=== PATIENT | female | born 1995 | race Caucasian/White ===

== ENCOUNTER 2020-01-31 07:49 | Day surgery (SDC) | payer OTHER ==
[~2020-01-31] VITALS: Ht 162.6 cm; Wt 95.3 kg
[~2020-01-31 07:49] MED LIST: CYMBALTA20 MG PO; HYDROCODON-ACE1 EA10 PO; HYDROXYZINE HCL10 MG PO; TORADOL10 MG PO
[2020-01-31 08:25] LABS: HEMATOCRIT 41.9 % (36.0-48.0); HEMOGLOBIN 13.9 g/dL (12-16); MCH 28.6 pg (26.0-34.0); MCHC 33.2 g/dL (31.0-37.0); MCV 86.2 fL (80.0-100.0); MEAN PLATELET VOLUME 9.1 fL (7.4-10.4); RBC 4.86 10x6/uL (4.00-5.40); RDW 12.2 % (11.5-14.5); WBC 4.4 10x3/uL (4.8-10.8)
[2020-01-31 08:46] LABS: HCG SERUM NEGATIVE (NEGATIVE)
[2020-01-31 08:57] VITALS: BP 112/75; Ht 162.6 cm; Wt 95.3 kg
--- NOTE | 2020-01-31 19:02 | NUR ---
1520 IV D/C'D WITH CANNULAINTACT, PRESSURE APPLIED AND DRSG APPLIED. DISCHARGE INSTRUCTIONS GIVEN AND PT AND MOTHER VERBALIZED AN UNDERSTANDING. OPERATIVE/BLOCKED LEG IS UNCHANGED. DISCHARGED IN STABLE CONDITION AND W/O C/O
--- NOTE | 2020-02-07 07:08 | OP ---
PATIENT NAME: MARIUM ROGERS MEDICAL RECORD: [id number] :96 LOCATION:D.OPS ADMISSION DATE: SURGEON: MAURICIO BELLAMY MD DATE OF OPERATION: 01/31/2020 PREOPERATIVE DIAGNOSIS: Fractured left metatarsal with displacement -- fifth metatarsal. POSTOPERATIVE DIAGNOSIS: Fractured left metatarsal with displacement -- fifth metatarsal. PROCEDURE: Open reduction internal fixation of left fifth metatarsal fracture. SURGEON: Mauricio Bellamy MD MOBILE GAME ENGINEER: LIAT Colmenares INTRAOPERATIVE COMPLICATIONS: None. SUMMARY OF PATHOLOGIC FINDINGS: The patient did indeed have a very displaced fracture of the fifth left metatarsal that required internal reduction and fixation using the Yris mini fragment set. OPERATIVE SUMMARY IN DETAIL: After obtaining the appropriate preoperative orthopedic surgery consent as well as anesthetic consultation, evaluation and placed in a supine position. After general laryngeal mask was administered, tourniquet was placed on the proximal aspect of the left lower extremity. Left lower extremity was then prepped and draped in routine sterile fashion. The leg was elevated and exsanguinated, tourniquet inflated to 350 mmHg. At this point, the appropriate timeout was taken and agreed upon by all given the patient's unique identifiers. Fluoroscopy based incision was then made over the fifth metatarsal. This was taken down to the level of the fracture fragment, which essentially extended to the metatarsal head to almost the metatarsal base. After mobilization of all fragments including the interposed fracture hematoma, the fracture fragments were aligned and provisionally pinned with a 0.045 K wires. The mini frag plate that was chosen was aligned and held in place with a small lobster clamp while serial and sequential drill and fill technique was done with a combination of both locking and nonlocking screws resulted anatomic fixation as seen on all 3 planes of radiographs. X-rays were taken and submitted for final radiologist review. The wound was copiously irrigated and closed with 2-0 Vicryl followed by 4-0 Prolene in interrupted fashion. Sterile dressings were applied. Tourniquet was deflated. The posterior L and U splint was applied. The patient was awakened and taken to the recovery room in stable condition. All final needle and sponge counts were correct. TRANSINT:[id number] Voice Confirmation ID: [id number] DOCUMENT ID: [id number] OPERATIVE REPORT [id number] MARIUM ROGERS MDMAURICIO at 0708 CC: [id number] DICTATION DATE: 02/06/20 1644 USABILITY ARCHITECT: 02/07/20 0141 [facility] [place] 01/31/20 [id number] [place] [address]
== END 2020-01-31 15:55 | disposition home or self-care (01) ==
LOC: D.OPS 07:49 → D.PAN 10:00 → D.OPS 10:00 → D.PAN 10:45 → D.OPS 15:55
PROVIDERS: Anesthesiology; ATTEND Orthopaedic Surgery
DX: S92.352A Displaced fracture of fifth metatarsal bone, left foot, initial encounter for closed fracture (principal); X58.XXXA Exposure to other specified factors, initial encounter